=== PATIENT | female | born 1940 | race Two or more races ===

== ENCOUNTER 2019-09-09 14:39 | Outpatient (CLI) | payer OTHER | END 2019-09-09 15:00 | disposition home or self-care (01) | LOC: NUCLEAR 14:39 | DX: M81.8 Other osteoporosis without current pathological fracture (principal) ==

== ENCOUNTER 2020-11-10 12:33 | Outpatient (CLI) | payer OTHER | END 2020-11-10 12:40 | disposition home or self-care (01) | LOC: SONOGRAMA 12:33 | PROVIDERS: ATTEND Family Medicine | DX: S46.10 Unspecified injury of muscle, fascia and tendon of long head of biceps (principal) ==